=== PATIENT | female | born 2000 | race Caucasian/White ===

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

== ENCOUNTER 2022-08-31 22:29 | Inpatient (IN) ==
[2022-08-31] MEDS ORDERED: Lactated Ringers 1000 ml BAG 1,000 ML IV ONE (23:42)
[2022-08-31] MEDS ORDERED: Promethazine INJ(RESTRICTED) 25 MG/ML 1 ml VIAL IV PRN (23:42)
[2022-08-31] MEDS ORDERED: Buffered Lidocaine 1% SYRIN 1 ml INTRADERM ONE (23:42)
[2022-08-31] MEDS ORDERED: Nalbuphine 10 MG/ML 1 ML VIAL IV PRN (23:42)
[2022-08-31] MEDS ORDERED: Penicillin G Potassium IV 5,000,000 UNITS in NS 0.9% 100 ml BAG 100 ML IVPB ONE (23:50)
[2022-09-01] MEDS ORDERED: Famotidine IV 10 MG/ML 2 ml VIAL (20 mg) IV SLOW PU ONE (00:21)
[2022-09-01 00:56] LABS: ABS Eosinophils 0.1 10^3/uL (0.0-0.5); ABS Lymphocytes 1.9 10^3/uL (1.0-4.8); ABS Monocytes 0.8 10^3/uL (0.0-0.9); ABS Neutrophils 7.9 10^3/uL (1.5-7.6); ABS Nucleated RBC 0.01 10^3/ul; Eosinophil % 0.7 %; Hematocrit 31.6 % (35-45); Hemoglobin 10.5 g/dL (11.5-14.3); Lymphocyte % 17.4 %; Mean Corpuscular Hemoglobin 25.6 pg (27-33); Mean Corpuscular Hgb Conc 33.3 g/dL (31-36); Mean Corpuscular Volume 76.8 fL (80-97); Mean Platelet Volume 8.1 fL (7.5-11.2); Nucleated Red Blood Cells % 0.1 /100 WBC (0.0-0.4); Platelet Count 325 10^3/uL (150-450); Red Blood Count 4.11 10^6/uL (3.63-4.92); Red Cell Distribution Width 15.4 % (12-17); White Blood Count 10.7 10^3/uL (3.8-11.8)
[2022-09-01 01:16] LABS: Urine Benzodiazepine Screen None Detected (None Detect); Urine Cannabinoids Screen None Detected (None Detect); Urine Opiates Screen None Detected (None Detect)
[2022-09-01] MEDS: Calcium Carb (TUMS) 500 mg CHEW TAB PO PRN ×2 (03:36→15:53)
[2022-09-01] MEDS: Penicillin G Potassium IV 3,000,000 UNITS in NS 0.9% 100 ml BAG 100 ML IVPB SCH ×5 (05:30→21:38)
[2022-09-01] MEDS ORDERED: Oxytocin in LR 20,000 MILLI.UNIT/1,000 ML BAG IV SCH (08:15)
[2022-09-01] MEDS: Lactated Ringers 1000 ml BAG 1,000 ML IV SCH (11:50)
[2022-09-01] MEDS: Famotidine IV 10 MG/ML 2 ml VIAL (20 mg) IV SLOW PU SCH ×2 (19:47→21:38)
[2022-09-02] MEDS ORDERED: fentaNYL 100 mcg/2 ml 50 MCG/ML VIAL IV ONE (00:06)
[2022-09-02] MEDS ORDERED: OBEPIDURAL (200 ML) 200 ML EPIDURAL ONE (00:43)
[2022-09-02] MEDS ORDERED: Lidocaine 1.5% EPI 1:200,000 30 ML SDV ONE (00:43)
[2022-09-02] MEDS ORDERED: Lactated Ringers 1000 ml BAG 1,000 ML IV ONE (01:49)
[2022-09-02] MEDS ORDERED: Phenylephrine 40 mcg/mL 10mL (400mcg) SYRINGE IV PUSH PRN (01:49)
[2022-09-02] MEDS ORDERED: Sodium Citrate/Citric Acid LIQ 15 ML UDC PO PRN (01:49)
[2022-09-02] MEDS: Lactated Ringers 1000 ml BAG 1,000 ML IV SCH (01:52)
[2022-09-02] MEDS ORDERED: OBEPIDURAL (200 ML) 200 ML EPIDURAL SCH (02:00)
[2022-09-02] MEDS ORDERED: Lactated Ringers 1000 ml BAG 1,000 ML IV SCH ×2 (02:00→08:00)
[2022-09-02] MEDS: Penicillin G Potassium IV 3,000,000 UNITS in NS 0.9% 100 ml BAG 100 ML IVPB SCH ×2 (02:04→06:25)
[2022-09-02 02:21] LABS: Urine Appearance Clear; Urine Bilirubin Negative (Negative); Urine Blood Negative (Negative); Urine Color Yellow; Urine Glucose Negative (Negative); Urine Ketones 2+ (Negative); Urine Nitrite Negative (Negative); Urine Protein Negative (Negative); Urine Urobilinogen Negative (Negative)
[2022-09-02] MEDS: Phenylephrine 40 mcg/mL 10mL (400mcg) SYRINGE IV PUSH PRN ×2 (02:33→04:03)
[2022-09-02] MEDS ORDERED: Oxytocin in LR 20,000 MILLI.UNIT/1,000 ML BAG IV SCH (04:30)
[2022-09-02] MEDS: Calcium Carb (TUMS) 500 mg CHEW TAB PO PRN (05:49)
[2022-09-02] MEDS ORDERED: Glycerin ADULT 2.4 gm SUPP PR PRN (07:48)
[2022-09-02] MEDS: Dibucaine 1% OINT 28.35 GM TUBE PR PRN (09:55)
[2022-09-02] MEDS: Witch Hazel PAD JAR TOPICAL PRN (09:55)
[2022-09-03] MEDS: Witch Hazel PAD JAR TOPICAL PRN (07:54)
[2022-09-03] MEDS: Dibucaine 1% OINT 28.35 GM TUBE PR PRN (07:54)
[2022-09-03 07:58] LABS: ABS Basophils 0.1 10^3/uL (0.0-0.1); ABS Eosinophils 0.1 10^3/uL (0.0-0.5); ABS Lymphocytes 1.8 10^3/uL (1.0-4.8); ABS Monocytes 0.6 10^3/uL (0.0-0.9); Eosinophil % 0.9 %; Hematocrit 30.9 % (35-45); Hemoglobin 10.3 g/dL (11.5-14.3); Lymphocyte % 17.2 %; Mean Corpuscular Hemoglobin 25.9 pg (27-33); Mean Corpuscular Hgb Conc 33.4 g/dL (31-36); Mean Corpuscular Volume 77.5 fL (80-97); Mean Platelet Volume 7.9 fL (7.5-11.2); Platelet Count 263 10^3/uL (150-450); Red Blood Count 3.99 10^6/uL (3.63-4.92); Red Cell Distribution Width 15.7 % (12-17); White Blood Count 10.6 10^3/uL (3.8-11.8)
[2022-09-04 08:36] VITALS: BP 114/71
== END 2022-09-04 11:52 | disposition home or self-care (01) | DRG 560 ==
LOC: MCHOBOUT 22:29 → MCHOB 23:25
PROVIDERS: ADMIT Advanced Practice Midwife; ATTEND Advanced Practice Midwife